=== PATIENT | female | born 1955 | race Caucasian/White ===

== ENCOUNTER 2018-05-30 17:59 | Observation (INO) | payer OTHER ==
[~2018-05-30] VITALS: Ht 170.2 cm; Wt 126.9 kg
[~2018-05-30 17:59] MED LIST: ACET325 PO; ALBU90I INH; ALBU90OI INH; CALCA500CH PO; CALCIT950 PO; ERGO400 PO; Excedrin Extra1 EACH PO; FLUSAL1005 IH; FLUSAL115 INH; HYDACE5325 PO; IBUP200 PO; Prilosec Otc20 MG; VALA500 PO; ZOLP10 PO
[2018-05-30 19:00] LABS: BASOPHILS ABSOLUTE AUTO 0.06 K/mm3 (0.00-0.23); BASOPHILS PERCENT AUTO 1 % (0-2); EOSINOPHILS ABSOLUTE AUTO 0.14 K/mm3 (0.00-0.68); EOSINOPHILS PERCENT AUTO 1 % (0-6); Hematocrit 36.8 % (33.0-51.0); Hemoglobin 11.7 g/dL (11.5-16.0); IMMATURE GRAN ABSOLUTE AUTO 0.03 K/mm3 (0.00-0.10); IMMATURE GRAN PERCENT AUTO 0 % (0-1); LYMPHOCYTES ABSOLUTE AUTO 3.27 K/mm3 (0.84-5.20); LYMPHOCYTES PERCENT AUTO 29 % (21-46); MONOCYTES ABSOLUTE AUTO 0.75 K/mm3 (0.16-1.47); MONOCYTES PERCENT AUTO 7 % (4-13); Mean Corpuscular HGB 28.3 pg (26.0-34.0); Mean Corpuscular HGB Conc 31.8 g/dL (31.5-36.5); Mean Corpuscular Volume 89 fL (80-100); Mean Platelet Volume 10.5 fL (9.1-12.4); NEUTROPHILS ABSOLUTE AUTO 7.14 K/mm3 (1.96-9.15); NEUTROPHILS PERCENT AUTO 63 % (41-73); Platelet Count 302 K/mm3 (150-400); RDW Coefficient Variation 13.4 % (11.7-14.2); RDW Standard Deviation 43.9 fL (35.1-46.3); Red Blood Cell Count 4.13 M/mm3 (3.80-5.20); White Blood Cell Count 11.39 K/mm3 (4.00-11.30)
[2018-05-30 19:00] LABS: Calcium, Ionized (POC) 1.09 mmol/L (1.10-1.46); Chloride (POC) 107 mmol/L (98-108); Creatinine (POC) 1.1 mg/dL (0.6-1.0); Glucose (ISTAT POC) 112 mg/dL (70-99); Hemoglobin (POC) 10.5 g/dL (12.0-16.0); Potassium (POC) 3.2 mmol/L (3.5-5.5); Sodium (POC) 143 mmol/L (135-148); Total CO2 (POC) 23 mmol/L (21-32)
[2018-05-30 19:25] LABS: Albumin, Blood 3.4 g/dL (3.4-5.0); Bilirubin, Total 0.2 mg/dL (0.1-1.0); Bun/Creatinine Ratio 24.8 (12.0-20.0); Calcium, Blood 8.4 mg/dL (8.5-10.1); Creatinine, Blood 1.09 mg/dL (0.40-1.00); Globulin, Blood 3.5 g/dL (2.2-4.0); Potassium, Blood 3.3 mmol/L (3.5-5.5); Total Protein, Blood 6.9 g/dL (6.4-8.2)
[2018-05-30] MEDS ORDERED: FLUT1DIS2 INH (19:41)
[2018-05-30] MEDS ORDERED: OMEPRAZOLE MAGN20 MG PO (19:42)
[2018-05-30] MEDS ORDERED: ZOLP5 PO (19:42)
[2018-05-30 20:50] LABS: Calcium, Ionized (POC) 1.13 mmol/L (1.10-1.46); Chloride (POC) 106 mmol/L (98-108); Creatinine (POC) 0.9 mg/dL (0.6-1.0); Glucose (ISTAT POC) 135 mg/dL (70-99); Hemoglobin (POC) 9.9 g/dL (12.0-16.0); Potassium (POC) 3.7 mmol/L (3.5-5.5); Sodium (POC) 141 mmol/L (135-148); Total CO2 (POC) 22 mmol/L (21-32)
[2018-05-30 20:55] LABS: International Normalized Ratio 0.97; Prothrombin Time Results 10.3 Sec (9.7-11.5)
--- NOTE | 2018-05-30 22:02 | NUR ---
PATIENT ARRIVED TO ICU14 VIA GURNEY FROM ED WITH DX OF GI BLEED. PATIENT AWAKE A&O X3, TRANSFERRED TO BED WITH SLIDER SHEET AND PLACED ON ICU MONITORS. FIRST UNIT OF PRBC INFUSING. PATIENT VERBALIZED SHE IS FEELING MUCH BETTER. PLAN TO GIVE ONE MORE UNIT PRBC AND START BOWEL PREP TONIGHT.
--- NOTE | 2018-05-31 01:56 | NUR ---
BOWEL PREP (1/2 GAL) COMPLETE. PATIENT UP TO BSC PASSING DARK MAROON LIQUID STOOL.
--- NOTE | 2018-05-31 06:04 | NUR ---
SUMMARY PATIENT UP AND DOWN TO BSC T/O NIGHT PASSING LIQUID DARK MAROON STOOLS AFTER FINISHING 1/2 GAL OF GOLYTE FOR BOWEL PREP. PATIENT RECEIVED 2 UNITS PRBC AND VERBALIZED THAT SHE IS FEELING BETTER.
[2018-05-31 06:08] LABS: BASOPHILS ABSOLUTE AUTO 0.05 K/mm3 (0.00-0.23); BASOPHILS PERCENT AUTO 1 % (0-2); EOSINOPHILS ABSOLUTE AUTO 0.05 K/mm3 (0.00-0.68); EOSINOPHILS PERCENT AUTO 1 % (0-6); Hematocrit 32.5 % (33.0-51.0); Hemoglobin 10.6 g/dL (11.5-16.0); IMMATURE GRAN ABSOLUTE AUTO 0.04 K/mm3 (0.00-0.10); IMMATURE GRAN PERCENT AUTO 0 % (0-1); LYMPHOCYTES ABSOLUTE AUTO 3.18 K/mm3 (0.84-5.20); LYMPHOCYTES PERCENT AUTO 30 % (21-46); MONOCYTES ABSOLUTE AUTO 0.61 K/mm3 (0.16-1.47); MONOCYTES PERCENT AUTO 6 % (4-13); Mean Corpuscular HGB 28.9 pg (26.0-34.0); Mean Corpuscular HGB Conc 32.6 g/dL (31.5-36.5); Mean Corpuscular Volume 89 fL (80-100); Mean Platelet Volume 10.5 fL (9.1-12.4); NEUTROPHILS ABSOLUTE AUTO 6.58 K/mm3 (1.96-9.15); NEUTROPHILS PERCENT AUTO 63 % (41-73); Platelet Count 239 K/mm3 (150-400); RDW Coefficient Variation 14.1 % (11.7-14.2); RDW Standard Deviation 45.5 fL (35.1-46.3); Red Blood Cell Count 3.67 M/mm3 (3.80-5.20); White Blood Cell Count 10.51 K/mm3 (4.00-11.30)
--- NOTE | 2018-05-31 07:47 | NUR ---
ASSUMED CARE: PT RESTING QUIETLY AT THIS TIME. VSS. NO ACUTE DISTRESS NOTED AT PRESENT
--- NOTE | 2018-05-31 11:33 | NUR ---
CALL TO DAY SURGERY TO DETERMINE WHEN PROCEDURE IS TO HAPPEN AND UPDATED ON PT'S STATUS FOR CLEARANCE. PLAN IS FOR 3PM FOR SCOPE. PT AWARE. STOOL CURRENTLY SMALL AMANDA WITH TEA COLORED FLUID.
[2018-05-31 12:37] LABS: Hematocrit 33.6 % (33.0-51.0); Hemoglobin 10.8 g/dL (11.5-16.0)
--- NOTE | 2018-05-31 15:58 | NUR ---
05/31/18 1558 Pool Lind History, Chart, Medications and Allergies reviewed before start of procedure.MONITOR INTACT WITH CONTINUOUS PULSE OXIMETRY AND INTERMITTENT BP.3-LEAD EKG REVIEWED WITH PHYSICIAN PRIOR TO START OF PROCEDURE.O2 VIA N/C INTACT THROUGHOUT SEDATION/PROCEDURE. Patient confirms NPO status and agrees with scheduled surgery.PATIENT DETERMINED TO BE ASA APPROPRIATE FOR PROPOFOL SEDATION PRIOR TO START OF PROCEDURE BY DR. AGUILLON.
--- NOTE | 2018-05-31 16:14 | NUR ---
DR AGUILLON STATES DIVERTICULUM BLEEDS BUT IS STABLE TO GO TO MEDICAL FLOOR WITH TELE. DR AWARE OF EPISODES OF PVCS AND VTACH OVER NIGHT. CALL TO DR MEDINA TO MAKE HIM AWARE WELL
--- NOTE | 2018-05-31 16:59 | NUR ---
REPORT CALLED TO DARSHAN VALERIO. PT TRANSFERRED TO ROOM 330 VIA WHEEL CHAIR BY CONSTRUCTION CARPENTER. PT'S STEP DAUGHTER DESIRAE AWARE OF TRANSFER.
--- NOTE | 2018-05-31 18:47 | NUR ---
SHIFT SUMMARY PATIENT A&O X4, INDEPENDENT IN THE ROOM. DENIES ANY PAIN OR SOB. ARRIVED TO UNIT AT 1458. STATES SHE HAD 2 BLOODY STOOLS EARLIER TODAY. STATUS POST COLONOSCOPY. RN AGREES WITH ASSESSMENT FROM CORE DROPPER. NO ACUTE CHANGES.
--- NOTE | 2018-06-01 04:39 | NUR ---
SHIFT SUMMARY PT IS A&O, PLEASANT AND CO-OP. ICU TX PRIOR TO START OF NOC SHIFT, AFTER COLONOSCOPY. PT DENIED PAIN. NO BLOODY STOOLS TO PRESENT SINCE TX. REQUESTED HOME MEDICATION, AMBIEN, FOR SLEEP. BUT PT WENT TO SLEEP ON HER OWN PRIOR TO DR MEDINA ORDERING IT. PT REPORTED BEING ABLE TO SLEEP A FEW HOURS LAST NIGHT. NO C/O THIS AM WHEN WAKING. INDEPENDANT TO BTHRM TO VOID. PT TO D/C TO HOME TODAY. TOLERATED SCD'S FOR A WHILE LAST NIGHT. CALL LT IN REACH.
[2018-06-01 04:47] LABS: BASOPHILS ABSOLUTE AUTO 0.05 K/mm3 (0.00-0.23); BASOPHILS PERCENT AUTO 1 % (0-2); EOSINOPHILS ABSOLUTE AUTO 0.13 K/mm3 (0.00-0.68); EOSINOPHILS PERCENT AUTO 2 % (0-6); Hematocrit 28.3 % (33.0-51.0); Hemoglobin 9.1 g/dL (11.5-16.0); IMMATURE GRAN ABSOLUTE AUTO 0.03 K/mm3 (0.00-0.10); IMMATURE GRAN PERCENT AUTO 0 % (0-1); LYMPHOCYTES ABSOLUTE AUTO 2.77 K/mm3 (0.84-5.20); LYMPHOCYTES PERCENT AUTO 37 % (21-46); MONOCYTES ABSOLUTE AUTO 0.68 K/mm3 (0.16-1.47); MONOCYTES PERCENT AUTO 9 % (4-13); Mean Corpuscular HGB 28.3 pg (26.0-34.0); Mean Corpuscular HGB Conc 32.2 g/dL (31.5-36.5); Mean Corpuscular Volume 88 fL (80-100); Mean Platelet Volume 10.7 fL (9.1-12.4); NEUTROPHILS ABSOLUTE AUTO 3.79 K/mm3 (1.96-9.15); NEUTROPHILS PERCENT AUTO 51 % (41-73); Platelet Count 200 K/mm3 (150-400); RDW Coefficient Variation 14.4 % (11.7-14.2); Red Blood Cell Count 3.21 M/mm3 (3.80-5.20); White Blood Cell Count 7.45 K/mm3 (4.00-11.30)
[2018-06-01 04:48] LABS: Hematocrit 29.5 % (33.0-51.0); Hemoglobin 9.3 g/dL (11.5-16.0)
[2018-06-01 05:08] LABS: Anion Gap 7 mmol/L (6-16); Blood Urea Nitrogen 14 mg/dL (8-24); Bun/Creatinine Ratio 19.9 (12.0-20.0); CO2, Blood 27 mmol/L (21-32); Calcium, Blood 7.8 mg/dL (8.5-10.1); Chloride, Blood 111 mmol/L (98-108); Glomerular Filtration Rate >60 (60-); Glucose, Blood 89 mg/dL (70-99); Potassium, Blood 3.4 mmol/L (3.5-5.5); Sodium, Blood 145 mmol/L (136-145)
[2018-06-01] MEDS ORDERED: LISI5 PO (10:54)
--- NOTE | 2018-06-01 11:11 | NUR ---
1110 PATIENT DISCHARGED FROM CARE. NURSE WENT OVER NEW MEDICATION AND EDUCATED PATIENT REGARDING HTN AND THE NEW MEDICATION. MEDS CALLED INTO [facility]. IV REMOVED. NO S/S OF INFECTION NOTED. PATIENT REQUESTED TO WALK OUT. DAUGHTERS PRESENT AND WILL DRIVE PATIENT HOME. BELONGS PACKED BY FAMILY AND PATIENT.
== END 2018-06-01 11:09 | disposition home or self-care (01) ==
LOC: ER 17:59 → ICUW 18:00 → MEDS 22:10 → ICUW 22:10 → MEDS 05-31 14:58 → ENPENDDIS 06-01 09:00 → MEDS 06-01 11:09
PROVIDERS: Emergency Medicine; Internal Medicine; Internal Medicine Gastroenterology; ADMIT Hospitalist
PROC: 0DBH8ZX Excision of Cecum, Via Natural or Artificial Opening Endoscopic, Diagnostic (ICD-10-PCS; principal; 2018-05-31 16:00)
DX: D12.0 Benign neoplasm of cecum (principal); K64.8 Other hemorrhoids; K57.30 Diverticulosis of large intestine without perforation or abscess without bleeding; J45.909 Unspecified asthma, uncomplicated; E66.01 Morbid (severe) obesity due to excess calories; K21.9 Gastro-esophageal reflux disease without esophagitis; Z88.5 Allergy status to narcotic agent; Z88.2 Allergy status to sulfonamides; Z68.41 Body mass index [BMI] 40.0-44.9, adult
CPT/HCPCS: 36415; 36430; 80047; 80048; 80053; 85014; 85018; 85025; 85610; 86850; 86900; 86901; 86923; 94640; 94760; 96360; 99285-25; C9113; G0378; J3480; J7030; J7120; P9016

== ENCOUNTER 2020-10-14 05:59 | Day surgery (SDC) | payer OTHER ==
[~2020-10-14] VITALS: Ht 170.2 cm; Wt 114.5 kg
[~2020-10-14 05:59] MED LIST changes: +ALBU3IS INH; +FLUT1DIS2 INH; +LISI5 PO; +OMEPRAZOLE MAGN20 MG PO; +ZOLP5 PO
--- NOTE | 2020-10-14 06:19 | NUR ---
History, Chart, Medications and Allergies reviewed before start of procedure. Patient confirms NPO status and agrees with scheduled surgery.
--- NOTE | 2020-10-14 08:22 | NUR ---
10/14/20 0822 Alethea Jung PATIENT POSITIONED IN LATERAL POSITION (RIGHT SIDE UP). [id number] PADDED, POSITIONED AND SECURED, FINAL POSITION CLEARED BY OR TEAM AND DR. MENDEZ.
--- NOTE | 2020-10-14 10:04 | NUR ---
Patient up to Ambulate independently. Gait steady. Discharge instructions reviewed with patient. Patient verbalizes understanding. Copy given to patient to take home. History, Chart, Medications and Allergies reviewed before start of procedure.Lungs clear T/O to Auscultation. Patient States Post-Procedure ride home has been arranged. Discharged via wheelchair to private car for ride home.
== END 2020-10-14 10:06 | disposition home or self-care (01) ==
LOC: ORSCMMR 05:59 → ORD 07:30 → ORSCMMR 10:06
PROVIDERS: Surgery
PROC: 0HB6XZZ Excision of Back Skin, External Approach (ICD-10-PCS; principal; 2020-10-14 07:30)
PROC: 0JB60ZZ Excision of Chest Subcutaneous Tissue and Fascia, Open Approach (ICD-10-PCS; principal; 2020-10-14 07:30)
DX: D17.79 Benign lipomatous neoplasm of other sites (principal); L72.3 Sebaceous cyst; J45.909 Unspecified asthma, uncomplicated; E78.5 Hyperlipidemia, unspecified; F32.9 Major depressive disorder, single episode, unspecified; K21.9 Gastro-esophageal reflux disease without esophagitis; Z79.899 Other long term (current) drug therapy
CPT/HCPCS: 88304; A9270; J0690; J1100; J1885; J2250; J2370; J2405; J2704; J3010; J7120

== ENCOUNTER 2021-11-06 12:13 | Day surgery (SDC) | payer OTHER ==
[~2021-11-06] VITALS: Ht 170.2 cm; Wt 116.1 kg
== END 2021-11-06 14:34 | disposition home or self-care (01) ==
LOC: ORSCSDS 12:13
PROVIDERS: Internal Medicine Gastroenterology
PROC: 0DB58ZX Excision of Esophagus, Via Natural or Artificial Opening Endoscopic, Diagnostic (ICD-10-PCS; principal; 2021-11-06 13:15)
PROC: 0DBK8ZX Excision of Ascending Colon, Via Natural or Artificial Opening Endoscopic, Diagnostic (ICD-10-PCS; principal; 2021-11-06 13:15)
DX: Z12.11 Encounter for screening for malignant neoplasm of colon (principal); Z86.010 Personal history of colon polyps; K21.00 Gastro-esophageal reflux disease with esophagitis, without bleeding; K57.30 Diverticulosis of large intestine without perforation or abscess without bleeding; K64.8 Other hemorrhoids; B37.81 Candidal esophagitis; K44.9 Diaphragmatic hernia without obstruction or gangrene; K52.89 Other specified noninfective gastroenteritis and colitis; D12.2 Benign neoplasm of ascending colon; E66.01 Morbid (severe) obesity due to excess calories; Z68.41 Body mass index [BMI] 40.0-44.9, adult
CPT/HCPCS: 88305; 88312; J2704; J7120

== ENCOUNTER 2023-12-28 10:20 | Day surgery (SDC) | payer OTHER ==
[~2023-12-28] VITALS: Ht 170.2 cm; Wt 99.0 kg
[~2023-12-28 10:20] MED LIST changes: +DILT120 PO; +Lactated Ringer's 1,000 ML IV ONE; +XARELTO20 M1 PO; +ZESTRIL40 M2 PO
[2023-12-28] MEDS ORDERED: propofoL 50 ML IV ONE (12:23)
[2023-12-28] MEDS ORDERED: Lactated Ringer's 1,000 ML IV ONE (12:43)
--- NOTE | 2023-12-28 13:18 | NUR ---
12/28/23 1318 Reny Carrion PT.DENIES ANY PAIN.
[2023-12-28 15:03] VITALS: BP 136/78
== END 2023-12-28 13:57 | disposition home or self-care (01) ==
LOC: ORSCSDS 10:20
PROVIDERS: Internal Medicine Gastroenterology
PROC: 0DJD8ZZ Inspection of Lower Intestinal Tract, Via Natural or Artificial Opening Endoscopic (ICD-10-PCS; principal; 2023-12-28 12:00)
PROC: 0DB98ZX Excision of Duodenum, Via Natural or Artificial Opening Endoscopic, Diagnostic (ICD-10-PCS; principal; 2023-12-28 12:00)
PROC: 0DB58ZX Excision of Esophagus, Via Natural or Artificial Opening Endoscopic, Diagnostic (ICD-10-PCS; principal; 2023-12-28 12:00)
DX: K62.5 Hemorrhage of anus and rectum (principal); R13.10 Dysphagia, unspecified; D64.9 Anemia, unspecified; K21.9 Gastro-esophageal reflux disease without esophagitis; B37.81 Candidal esophagitis; I48.91 Unspecified atrial fibrillation; Z79.01 Long term (current) use of anticoagulants; K57.30 Diverticulosis of large intestine without perforation or abscess without bleeding; Z86.0100 Personal history of colon polyps, unspecified; E78.5 Hyperlipidemia, unspecified; E66.9 Obesity, unspecified; Z68.39 Body mass index [BMI] 39.0-39.9, adult; Z79.899 Other long term (current) drug therapy
CPT/HCPCS: 88305; 88312; J2704; J7120

== ENCOUNTER 2024-03-06 17:23 | Emergency (ER) | payer OTHER ==
[~2024-03-06] VITALS: Ht 165.1 cm; Wt 140.6 kg
[~2024-03-06 17:23] MED LIST changes: -Lactated Ringer's 1,000 ML IV ONE
[2024-03-06] MEDS ORDERED: NS 1,000 ML IV SCH (18:35)
[2024-03-06 18:47] LABS: BASOPHILS ABSOLUTE AUTO 0.09 K/mm3 (0.00-0.23); BASOPHILS PERCENT AUTO 0 % (0-2); EOSINOPHILS ABSOLUTE AUTO 0.01 K/mm3 (0.00-0.68); EOSINOPHILS PERCENT AUTO 0 % (0-6); Hematocrit 40.4 % (33.0-51.0); Hemoglobin 12.7 g/dL (11.5-16.0); IMMATURE GRAN ABSOLUTE AUTO 0.19 K/mm3 (0.00-0.10); IMMATURE GRAN PERCENT AUTO 1 % (0-1); LYMPHOCYTES ABSOLUTE AUTO 2.46 K/mm3 (0.84-5.20); LYMPHOCYTES PERCENT AUTO 10 % (21-46); MONOCYTES ABSOLUTE AUTO 1.43 K/mm3 (0.16-1.47); MONOCYTES PERCENT AUTO 6 % (4-13); Mean Corpuscular HGB 27.7 pg (26.0-34.0); Mean Corpuscular HGB Conc 31.4 g/dL (31.5-36.5); Mean Corpuscular Volume 88 fL (80-100); Mean Platelet Volume 10.1 fL (9.1-12.4); NEUTROPHILS ABSOLUTE AUTO 21.29 K/mm3 (1.96-9.15); NEUTROPHILS PERCENT AUTO 84 % (41-73); Platelet Count 360 K/mm3 (150-400); RDW Coefficient Variation 13.9 % (11.7-14.2); RDW Standard Deviation 44.5 fL (35.1-46.3); Red Blood Cell Count 4.59 M/mm3 (3.80-5.20); White Blood Cell Count 25.47 K/mm3 (4.00-11.30)
[2024-03-06 19:14] LABS: Albumin, Blood 3.8 g/dL (3.4-5.0); Albumin/Globulin Ratio 1.1 (0.8-1.8); Bilirubin, Total 0.4 mg/dL (0.1-1.0); Bun/Creatinine Ratio 22.6 (12.0-20.0); Calcium, Blood 9.4 mg/dL (8.5-10.1); Creatinine, Blood 1.15 mg/dL (0.40-1.00); Globulin, Blood 3.6 g/dL (2.2-4.0); Potassium, Blood 4.5 mmol/L (3.5-5.5); Total Protein, Blood 7.4 g/dL (6.4-8.2)
[2024-03-06] MEDS ORDERED: Ondansetron HCl 2 MG / ML 2ML Vial IV ONE ×2 (19:15→21:30)
[2024-03-06] MEDS ORDERED: HYDROmorphone HCl/Pf 1MG SYR IV ONE (19:15)
[2024-03-06] MEDS ORDERED: Diltiazem HCl 5 MG / ML 5ML Vial IV ONE ×2 (19:40→22:30)
[2024-03-06 20:45] LABS: International Normalized Ratio 1.02; Prothrombin Time Results 10.9 Sec (9.7-11.5)
[2024-03-06] MEDS ORDERED: FentaNYL Citrate 50 MCG/ML 2 ML Injection ONE (21:23)
[2024-03-06] MEDS ORDERED: FentaNYL Citrate 50 MCG/ML 2 ML Injection IV ONE (21:30)
[2024-03-07 00:10] VITALS: BP 113/91
== END 2024-03-07 00:29 | disposition short-term general hospital (02) ==
LOC: ER 17:23
PROVIDERS: Student in an Organized Health Care Education/Training Program
DX: S72.491A Other fracture of lower end of right femur, initial encounter for closed fracture (principal); S82.141A Displaced bicondylar fracture of right tibia, initial encounter for closed fracture; W01.0XXA Fall on same level from slipping, tripping and stumbling without subsequent striking against object, initial encounter; R79.89 Other specified abnormal findings of blood chemistry; I48.91 Unspecified atrial fibrillation; M54.6 Pain in thoracic spine; I21.4 Non-ST elevation (NSTEMI) myocardial infarction; J45.909 Unspecified asthma, uncomplicated; K21.9 Gastro-esophageal reflux disease without esophagitis; Z88.2 Allergy status to sulfonamides; Z79.899 Other long term (current) drug therapy
CPT/HCPCS: 36415; 71045; 71275; 73501; 73560-RT; 73700; 74174; 80053; 82550; 84484; 85025; 85610; 85730; 93005; 93010; 96365-59; 96375-59; 96376-59; 99285-25; J1171; J2405; J3010; J7030; Q9967

== ENCOUNTER 2024-08-16 00:46 | Day surgery (SDC) | payer OTHER | END 2024-08-16 23:00 | disposition home or self-care (01) | LOC: WOUND 00:46 | DX: T81.329A Deep disruption or dehiscence of operation wound, unspecified, initial encounter (principal); L03.115 Cellulitis of right lower limb | CPT/HCPCS: G0463 ==

== ENCOUNTER 2024-09-13 01:27 | Day surgery (SDC) | payer OTHER | END 2024-09-13 23:00 | disposition home or self-care (01) | LOC: WOUND 01:27 | DX: L97.112 Non-pressure chronic ulcer of right thigh with fat layer exposed (principal); T81.32 Disruption of internal operation (surgical) wound, not elsewhere classified; L03.115 Cellulitis of right lower limb ==

== ENCOUNTER 2025-02-12 17:56 | Emergency (ER) | payer OTHER ==
[~2025-02-12] VITALS: Ht 170.2 cm; Wt 102.1 kg
[2025-02-12 18:21] VITALS: BP 174/98
[2025-02-12] MEDS ORDERED: METO100ER PO (18:24)
[2025-02-12] MEDS ORDERED: ENTRESTO 24 MG1 EAC3 PO (18:25)
[2025-02-12] MEDS ORDERED: XARELTO20 M1 PO (18:25)
[2025-02-12] MEDS ORDERED: SPIRONOLACTONE25 MG PO (18:25)
[2025-02-12] MEDS ORDERED: Cetirizine HCl10 MG PO (18:26)
[2025-02-12] MEDS ORDERED: JARDIANCE10 MG PO (18:26)
[2025-02-12 18:48] LABS: BASOPHILS ABSOLUTE AUTO 0.07 K/mm3 (0.00-0.23); BASOPHILS PERCENT AUTO 1 % (0-2); EOSINOPHILS ABSOLUTE AUTO 0.10 K/mm3 (0.00-0.68); EOSINOPHILS PERCENT AUTO 1 % (0-6); Hematocrit 28.5 % (33.0-51.0); Hemoglobin 7.5 g/dL (11.5-16.0); IMMATURE GRAN ABSOLUTE AUTO 0.03 K/mm3 (0.00-0.10); IMMATURE GRAN PERCENT AUTO 0 % (0-1); LYMPHOCYTES ABSOLUTE AUTO 2.57 K/mm3 (0.84-5.20); LYMPHOCYTES PERCENT AUTO 31 % (21-46); MONOCYTES ABSOLUTE AUTO 0.70 K/mm3 (0.16-1.47); MONOCYTES PERCENT AUTO 9 % (4-13); Mean Corpuscular HGB Conc 26.3 g/dL (31.5-36.5); Mean Corpuscular Volume 66 fL (80-100); NEUTROPHILS ABSOLUTE AUTO 4.80 K/mm3 (1.96-9.15); NEUTROPHILS PERCENT AUTO 58 % (41-73); NRBC ABSOLUTE 0.00 K/mm3 (0.00-0.02); NRBC Auto 0.0 /100 WBC (0.0-0.2); Platelet Count 459 K/mm3 (150-400); RDW Coefficient Variation 20.7 % (11.7-14.2); RDW Standard Deviation 47.2 fL (35.1-46.3)
[2025-02-12 19:09] LABS: Alanine Aminotransfer (ALT/SGP 35.0 U/L (12-78); Albumin, Blood 3.9 g/dL (3.4-5.0); Albumin/Globulin Ratio 1.1 (0.8-1.8); Anion Gap 9.0 mmol/L (3-11); Aspartate Aminotrans (AST/SGOT 18.0 U/L (12-37); Bilirubin, Total 0.2 mg/dL (0.1-1.0); Blood Urea Nitrogen 26.0 mg/dL (8-24); CO2, Blood 24.0 mmol/L (21-32); Calcium, Blood 9.0 mg/dL (8.5-10.1); Chloride, Blood 107.0 mmol/L (98-108); Creatinine, Blood 0.95 mg/dL (0.40-1.00); Globulin, Blood 3.6 g/dL (2.2-4.0); Glucose, Blood 97.0 mg/dL (70-99); Potassium, Blood 4.1 mmol/L (3.5-5.5); Sodium, Blood 136.0 mmol/L (136-145); Total Protein, Blood 7.5 g/dL (6.4-8.2)
== END 2025-02-13 00:18 | disposition home or self-care (01) ==
LOC: ER 17:56
PROVIDERS: Student in an Organized Health Care Education/Training Program
DX: R55 Syncope and collapse (principal); D50.9 Iron deficiency anemia, unspecified; I48.91 Unspecified atrial fibrillation; J45.909 Unspecified asthma, uncomplicated; K21.9 Gastro-esophageal reflux disease without esophagitis; Z88.2 Allergy status to sulfonamides; Z79.01 Long term (current) use of anticoagulants; Z79.84 Long term (current) use of oral hypoglycemic drugs; Z79.899 Other long term (current) drug therapy; Z59.89 Other problems related to housing and economic circumstances
CPT/HCPCS: 71046; 80053; 83880; 84484; 85025; 93005; 93010; 99284-25